=== PATIENT | female | born 1960 | race Caucasian/White ===

== ENCOUNTER 2016-12-18 22:20 | Emergency (ER) | payer OTHER ==
[~2016-12-18] VITALS: Ht 154.9 cm; Wt 60.0 kg
[~2016-12-18 22:20] MED LIST: ERYT.5%O RIGHT EYE
[2016-12-18 22:32] VITALS: BP 95/55; PULSE 84; RESP 18; TEMP 97.8; O2SAT 91
[2016-12-18 22:33] VITALS: O2SAT 96
--- NOTE | 2016-12-18 23:04 | PD ---
HPI Chief Complaint: Respiratory Symptoms Time Seen by Provider: 22:39 Travel History International Travel<30 days: No Contact w/Intl Traveler<30days: No Traveled to known affect area: No History of Present Illness HPI The patient is a 56 year old female who presents to the [facility] emergency department with a history of left-sided chest wall pain that she reports began after she fell at work on Sunday. The patient did not hit the area. She reports that she landed on her knees and then fell backwards. She reports that when she sat up she began to have a pain underneath the left collarbone. She reports that there has been some swelling to the area. She denies having any ecchymosis or erythema. On review of systems, the patient reports that she has had some shortness of breath with exertion. The patient reports that she does have a history of COPD. She reports that she's had a cough that is nonproductive. She denies having any neck pain, abdominal pain, vomiting, diarrhea, urinary symptoms, or neurologic symptoms. She denies any h/ o CHF, MS, CAD, PE, or DVT. PFS Past Medical History Narrative Medical The patient's past medical history is significant for COPD, right rotator cuff tear with chronic pain. Cancer: No Cardiovascular Problems: No Diminished Hearing: No Endocrine: No Genitourinary: No Immune Disorder: No Musculoskeletal: Yes (RIGHT SHOULDER, ROTATOR CUFF CHRONIC INJURY) Neurologic: No Psychiatric: No Reproductive: No Influenza Vaccination: No ?: Not Past Surgical History Narrative Surgical The patient's past surgical history is significant for , ankle sx left side. Other Surgery: Yes (SURGERY ON THE ANKLE) Social History Alcohol Use: Yes (COUPLE DRINKS two times a week.) Tobacco Use: Yes (1/2 ppd) Substance Use: No Allergies-Medications (Allergen,Severity, Reaction): Coded Allergies: No Known Allergies (Verified , 12/18/16) Reported Meds & Prescriptions Reported Meds & Active Scripts Active Proair Hfa 8.5 GM Inh (Albuterol Sulfate) 90 Mcg/Act Aer 2 Puff INH Q4-6H PRN 108 mcg/actuation Doxycycline Hyclate 100 Mg Cap 100 Mg PO BID Medrol Dosepak (Methylprednisolone) 4 Mg Dspk 4 Mg PO DIRECTED Per Pharmacist direction Review of Systems Except as stated in HPI: all other systems reviewed are Neg General / Constitutional: No: Fever Eyes: No: Visual changes HENT: Positive: Congestion, No: Headaches Cardiovascular: Positive: Chest Pain or Discomfort (left chest wall pain), No: Edema Respiratory: Positive: Cough, Wheezing, No: Shortness of Breath Gastrointestinal: No: Nausea, Vomiting, Diarrhea, Abdominal Pain Genitourinary: No: Dysuria Musculoskeletal: Positive: Myalgias, Arthralgias, No: Pain Skin: No Rash Neurologic: No: Weakness, Focal Abnormalities, Change in Mentation, Slurred Speech, Sensory Disturbance Psychiatric: No: Depression Endocrine: No: Polydipsia Hematologic/Lymphatic: No: Easy Bruising Physical Exam Narrative General: The patient is a well-developed, thin appearing female, slightly short of breath on arrival with accessory muscle use noted, O2 saturations on room air are 91%. Head and Neck exam: Head is normocephalic atraumatic. Eyes: EOMI, pupils are equal round and reactive to light. Nose: Midline septum with pink mucous membranes Mouth: Dentition unremarkable. Moist mucus membranes. Posterior oropharynx is not erythematous. No tonsillar hypertrophy. Uvula midline. Airway patent. Neck: No palpable lymphadenopathy. No nuchal rigidity. No thyromegaly. Cardiovascular: Regular rate and rhythm without murmurs, gallops, or rubs. No pulse deficit to the extremities simultaneously auscultation and palpation of her radial artery. Lungs: Expiratory wheezes audible throughout bilateral lung blackwood, no rhonchi, no crackles. The patient has some accessory muscle use noted. No tripoding, no paroxysmal abdominal breathing. The patient has tenderness on palpation along the left upper anterior chest wall. There is some swelling noted. There is no erythema or ecchymosis. No step-off or crepitus. No flail segment. Abdomen: Soft, without tenderness to palpation in all 4 quadrants of the abdomen. No guarding, rebound, or rigidity. Normal bowel sounds are audible. No tenderness on palpation of McBurney's point. Extremities: No clubbing, cyanosis, or edema. 2+ pulses in all 4 extremities. No calf tenderness on palpation. Back: No spinous process tenderness to palpation. No costovertebral angle tenderness to palpation. Neurologic Exam: Grossly nonfocal. Skin Exam: No rash noted. Intact skin that is warm and dry. Data Data Last Documented VS Vital Signs Date Time Temp Pulse Resp B/P (MAP) Pulse Ox O2 Delivery O2 Flow Rate FiO2 12/19/16 03:47 12/19/16 03:26 67 18 98 Room Air 12/19/16 00:20 2.00 12/18/16 22:32 97.8 Orders Orders Complete Blood Count With Diff (12/18/16 23:04) Comprehensive Metabolic Panel (12/18/16 23:04) B-Type Natriuretic Peptide (12/18/16 23:04) D-Dimer (12/18/16 23:04) Act Partial Throm Time (Ptt) (12/18/16 23:04) Prothrombin Time / Inr (Pt) (12/18/16 23:04) Magnesium (Mg) (12/18/16 23:04) Ckmb (Isoenzyme) Profile (12/18/16 23:04) Troponin I (12/18/16 23:) Urinalysis - C+S If Indicated (12/18/16 23:04) Iv Access Insert/Monitor (12/18/16 23:04) Electrocardiogram (12/18/16 23:04) Ecg Monitoring (12/18/16 23:04) Oximetry (12/18/16 23:04) Oxygen Administration (12/18/16 23:) Chest, Single Ap (12/18/16 23:04) Sodium Chloride 0.9% Flush (Ns Flush) (12/18/16 23:15) Methylprednisolone So Succ Inj (Solumedr (12/18/16 23:15) Albuterol-Ipratropium Neb (Duoneb Neb) (12/18/16 23:15) Sodium Chlorid 0.9% 500 Ml Inj (Ns 500 M (12/18/16 23:15) Ketorolac Inj (Toradol Inj) (12/18/16 23:15) Drug Screen, Random Urine (12/18/16 23:07) Alcohol (Ethanol) (12/18/16 23:20) Ct Pulmonary Angiogram (12/19/16 01:53) Iohexol 350 Inj (Omnipaque 350 Inj) (12/19/16 02:30) Labs Laboratory Tests Test 12/18/16 23:20 12/19/16 00:20 White Blood Count 6.5 TH/MM3 Red Blood Count 4.21 MIL/MM3 Hemoglobin 14.3 GM/DL Hematocrit 40.6 % Mean Corpuscular Volume 96.4 FL Mean Corpuscular Hemoglobin 34.0 PG Mean Corpuscular Hemoglobin Concent 35.3 % Red Cell Distribution Width 12.5 % Platelet Count 207 TH/MM3 Mean Platelet Volume 7.8 FL Neutrophils (%) (Auto) 51.1 % Lymphocytes (%) (Auto) 34.6 % Monocytes (%) (Auto) 10.4 % Eosinophils (%) (Auto) 2.9 % Basophils (%) (Auto) 1.0 % Neutrophils # (Auto) 3.3 TH/MM3 Lymphocytes # (Auto) 2.2 TH/MM3 Monocytes # (Auto) 0.7 TH/MM3 Eosinophils # (Auto) 0.2 TH/MM3 Basophils # (Auto) 0.1 TH/MM3 CBC Comment DIFF FINAL Differential Comment Prothrombin Time 9.8 SEC Prothromb Time International Ratio 0.9 RATIO Activated Partial Thromboplast Time 21.5 SEC D-Dimer Quantitative (PE/DVT) 0.60 MG/L FEU Blood Urea Nitrogen 9 MG/DL Creatinine 0.51 MG/DL Random Glucose 95 MG/DL Total Protein 7.1 GM/DL Albumin 3.6 GM/DL Calcium Level 8.6 MG/DL Magnesium Level 1.9 MG/DL Alkaline Phosphatase 64 U/L Aspartate Amino Transf (AST/SGOT) 34 U/L Alanine Aminotransferase (ALT/SGPT) 42 U/L Total Bilirubin 0.2 MG/DL Sodium Level 141 MEQ/L Potassium Level 3.3 MEQ/L Chloride Level 108 MEQ/L Carbon Dioxide Level 25.1 MEQ/L Anion Gap 8 MEQ/L Estimat Glomerular Filtration Rate 125 ML/MIN Total Creatine Kinase 53 U/L Troponin I LESS THAN 0.02 NG/ML B-Type Natriuretic Peptide 8 PG/ML Ethyl Alcohol Level 193 MG/DL Urine Color LIGHT-YELLOW Urine Turbidity CLEAR Urine pH 5.5 Urine Specific [place] 1.006 Urine Protein NEG mg/dL Urine Glucose (UA) NEG mg/dL Urine Ketones NEG mg/dL Urine Occult Blood TRACE Urine Nitrite NEG Urine Bilirubin NEG Urine Urobilinogen LESS THAN 2.0 MG/DL Urine Leukocyte Esterase NEG Urine RBC 1 /hpf Urine WBC 2 /hpf Urine Mucus FEW /lpf Microscopic Urinalysis Comment CULT NOT INDICATED Urine Opiates Screen POS Urine Barbiturates Screen NEG Urine Amphetamines Screen POS Urine Benzodiazepines Screen NEG Urine Cocaine Screen NEG Urine Cannabinoids Screen NEG MDM Medical Decision Making Medical Screen Exam Complete: Yes Emergency Medical Condition: Yes Medical Record Reviewed: Yes Interpretation(s) Last Impressions CT Angiography 12/19/16 0153 Signed Impressions: Service Date/Time: Monday, December 19, 2016 02:29 - CONCLUSION: 1. Negative for pulmonary embolus. 2. Mild to moderate centrilobular emphysema. 3. Linear atelectasis or scarring at the lung bases. Chepe Gómez MD Chest X-Ray 12/18/16 8910 Signed Impressions: Service Date/Time: Sunday, December 18, 2016 23:41 - CONCLUSION: No acute disease. Chepe Gómez MD Differential Diagnosis COPD exacerbation, versus pneumonia, versus pulmonary embolism, versus new- onset congestive heart failure, versus acute coronary syndrome, Versus rib fracture, versus costochondritis Narrative Course During the course of the patients emergency department visit, the patients history, examination, and differential diagnosis were reviewed with the patient. The patient had IV access obtained and blood work sent for analysis. The patient was placed on a solar thermal installer with oximetry and blood pressure monitoring. The patient was initially provided normal saline 500 mL bolus, DuoNeb, slight Medrol 125 mg IV, Toradol 15 mg IV for pain. The patients laboratory studies were reviewed and remarkable for a CBC that is remarkable for a monocytosis at 10.4. , CMP is remarkable for potassium of 3.3 which will be supplemented orally, CPK 53, troponin I less than 0.02, BNP is 8, d-dimer elevated at 0.60, CTA to rule out PE was ordered. PT PTT unremarkable, urinalysis shows trace occult blood, otherwise unremarkable. Urine drug screen is positive for opiates, positive for amphetamines, alcohol level CXCIII Radiology studies were reviewed and remarkable for a chest x-ray that showed no acute cardiopulmonary disease. CTA shows no evidence of pulmonary embolism, mild to moderate edema, linear atelectasis or scarring at the lung bases. The patient on reexamination at 3:15 AM is feeling improved. Resting comfortably. The patient's nasal cannula O2 was discontinued and she continues to saturate 97-98% on room air. A repeat blood pressure is 109/71. The patient will be discharged home with a prescription for doxycycline for bronchitis, a Medrol Dosepak taper, and a pro-air rescue inhaler. She is instructed regarding the importance of decreasing her alcohol intake and quitting smoking. The patient is resting comfortably and feels better, is alert and in no distress. The patients results and examination findings were discussed with the patient. The repeat examination is unremarkable and benign. The history, exam, diagnostic testing, and current condition do not suggest any significant pathology to warrant further testing, continued ED treatment, admission, or surgical evaluation at this point. The vital signs have been stable. The patient does not have uncontrollable pain, intractable vomiting, or other significant symptoms. The patient's condition is stable and appropriate for discharge. The patient will pursue further outpatient evaluation with a primary care physician or other designated or consulting physician as indicated in the discharge instructions. The patient expressed understanding and was agreeable with this plan. Diagnosis Primary Impression: COPD exacerbation Additional Impressions: Fall Qualified Codes: W19.XXXA - Unspecified fall, initial encounter Left-sided chest wall pain Referrals: [facility] 2 days Primary Care Physician 2 days Patient Instructions: COPD (Chronic Obstructive Pulmonary Disease) (ED), Chest Wall Pain (ED), General Instructions Med/Other Pt SpecificInfo: Prescription(s) given Scripts Albuterol 8.5 GM Inh (Proair Hfa 8.5 GM Inh) 90 Mcg/Act Aer 2 PUFF INH Q4-6H Y for SHORTNESS OF BREATH, #1 INHALER 0 Refills 108 mcg/actuation Prov: Vane Goldsmith MD 12/19/16 Doxycycline Hyclate (Doxycycline Hyclate) 100 Mg Cap 100 MG PO BID for Infection, #20 CAP 0 Refills Prov: Vane Goldsmith MD 12/19/16 Methylprednisolone Dosepak (Medrol Dosepak) 4 Mg Dspk 4 MG PO DIRECTED, #1 DSPK 0 Refills Per Pharmacist direction Prov: Vane Goldsmith MD 12/19/16 Disposition: 01 DISCHARGE HOME Condition: Stable Vane Goldsmith MD Dec 18, 2016 23:04
[2016-12-18 23:07] VITALS: O2SAT 96
[2016-12-18] MEDS ORDERED: SODIUM CHLORID 0.9% 500 ML INJ 500 ML IV ONE (23:15)
[2016-12-18] MEDS ORDERED: methylPREDNISolone SOD SUCC 125 MG/2 ML VIAL IVP ONE (23:15)
[2016-12-18] MEDS ORDERED: KETOROLAC TROMETHAMINE 30 MG/ML (IVP) VIAL IV PUSH ONE (23:15)
[2016-12-18] MEDS ORDERED: SODIUM CHLORIDE 0.9% FLUSH 10 ML FLUSH IVF PRN (23:15)
[2016-12-18 23:34] LABS: AUTOMATED NEUTROPHIL # 3.3 TH/MM3 (1.8-7.7); BASOPHIL # 0.1 TH/MM3 (0-0.2); EOSINOPHIL # 0.2 TH/MM3 (0-0.4); EOSINOPHIL % 2.9 % (0.0-4.0); HEMATOCRIT 40.6 % (35.0-46.0); HEMO FLAGS DIFF FINAL; LYMPH % 34.6 % (9.0-44.0); LYMPHOCYTE # 2.2 TH/MM3 (1.0-4.8); MEAN CELL VOLUME 96.4 FL (80.0-100.0); MEAN CORPUSCULAR HGB CONC 35.3 % (32.0-36.0); MONO % 10.4 % (0.0-8.0); NEUT % 51.1 % (16.0-70.0); PLATELET COUNT 207 TH/MM3 (150-450); RED BLOOD COUNT 4.21 MIL/MM3 (4.00-5.30); RED CELL DISTRIBUTION WIDTH 12.5 % (11.6-17.2); WHITE BLOOD COUNT 6.5 TH/MM3 (4.0-11.0)
[2016-12-18] MEDS: RESP: ALBUTEROL 2.5 MG/IPRATROPIUM 0.5 MG NEB (SCH) INH (23:40)
[2016-12-18 23:42] LABS: APTT (PATIENT) 21.5 SEC (24.3-30.1); INTERNATIONAL NORMALIZED RATIO 0.9 RATIO; PROTHROMBIN TIME - PATIENT 9.8 SEC (9.8-11.6)
--- NOTE | 2016-12-18 23:44 | RADRPT ---
EXAM DATE/TIME: 12/18/2016 23:41 [facility] COMPARISON: CHEST SINGLE AP, July 22, 2014, 23:51. INDICATIONS : Shortness of breath. MEDICAL HISTORY : None. SURGICAL HISTORY : None. ENCOUNTER: Initial ACUITY: 1 day PAIN SCORE: 0/10 LOCATION: Bilateral chest FINDINGS: A single view of the chest demonstrates the lungs to be symmetrically aerated without evidence of mas s, infiltrate or effusion. The cardiomediastinal contours are unremarkable. Osseous structures are intact. CONCLUSION: No acute disease. Chepe Gómez MD on December 18, 2016 at 23:41 Board Certified Radiologist. This report was verified electronically.
[2016-12-18 23:55] LABS: ALT (GPT) 42 U/L (10-53); ANION GAP 8 MEQ/L (5-15); AST (GOT) 34 U/L (15-37); BICARBONATE 25.1 MEQ/L (21.0-32.0); BLOOD UREA NITROGEN 9 MG/DL (7-18); CHLORIDE 108 MEQ/L (98-107); GLOMERULAR FILTRATION RATE 125 ML/MIN (>89); MAGNESIUM 1.9 MG/DL (1.5-2.5); POTASSIUM 3.3 MEQ/L (3.5-5.1); SODIUM (NA) 141 MEQ/L (136-145)
[2016-12-18 23:59] LABS: ALCOHOL 193 MG/DL (0-5); ALKALINE PHOSPHATASE 64 U/L (45-117); TOTAL BILIRUBIN ADULT 0.2 MG/DL (0.2-1.0)
[2016-12-19 00:04] LABS: CREATINE KINASE 53 U/L (26-192)
[2016-12-19 00:20] VITALS: BP 97/67; PULSE 89; RESP 16; O2SAT 98
[2016-12-19 00:41] LABS: BLOOD, URINE TRACE (NEG); COMMENT (UR) CULT NOT INDICATED; CULTURE IF INDICATED CULT NOT INDICATED; GLUCOSE,URINE NEG (NEG); KETONE, URINE NEG (NEG); MUCUS URINE FEW /lpf (OCC); NITRITE,URINE NEG (NEG); PH, URINE 5.5 (5.0-8.5); URINE COLOR LIGHT-YELLOW (YELLW/STRAW)
[2016-12-19] MEDS ORDERED: IOHEXOL 350 MG/ML 10 ML VIAL (for RAD DIAG) IVCONTRAST ONE (02:30)
--- NOTE | 2016-12-19 02:58 | RADRPT ---
EXAM DATE/TIME: 12/19/2016 02:29 [facility] COMPARISON: No previous studies available for comparison. INDICATIONS : Shortness of breath and chest pain. Fall few days ago. IV CONTRAST: 75 cc Omnipaque 350 (iohexol) IV RADIATION DOSE: 23.38 CTDIvol (mGy) MEDICAL HISTORY : Chronic obstructive pulmonary disease. SURGICAL HISTORY : None. ENCOUNTER: Initial ACUITY: 1 day PAIN SCALE: 6/10 LOCATION: Bilateral chest TECHNIQUE: Volumetric scanning of the chest was performed using a pulmonary embolism protocol MIP images were re constructed. Using automated exposure control and adjustment of the mA and/or kV according to patien t size, radiation dose was kept as low as reasonably achievable to obtain optimal diagnostic quality images. DICOM format image data is available electronically for review and comparison. Follow-up recommendations for detected pulmonary nodules are based at a minimum on nodule size and pa tient risk factors according to Fleischner Society Guidelines. FINDINGS: No filling defects identified to suggest pulmonary embolic disease. Linear atelectasis or scarring present at the lung bases. Mild to moderate centrilobular emphysema. N o pleural or pericardial effusion. No acute findings in the upper abdomen. Fatty liver. CONCLUSION: 1. Negative for pulmonary embolus. 2. Mild to moderate centrilobular emphysema. 3. Linear atelectasis or scarring at the lung bases. Chepe Gómez MD on December 19, 2016 at 2:52 Board Certified Radiologist. This report was verified electronically.
[2016-12-19] MEDS ORDERED: ALBUAER3 INH (03:23)
[2016-12-19] MEDS ORDERED: DOXY100C PO (03:23)
[2016-12-19] MEDS ORDERED: MEDR4PAK PO (03:23)
[2016-12-19 03:26] VITALS: BP 109/71; PULSE 67; RESP 18; O2SAT 98
--- NOTE | 2016-12-19 14:00 | EKG ---
Date Performed: 12/18/2016 Time Performed: 22:52:01 PTAGE: 56 years EKG: Sinus rhythm LEFT ANTERIOR FASCICULAR BLOCK ABNORMAL ECG Compared to prior tracing no significant change PREVIOUS TRACING : 07/09/2014 09.26 DOCTOR: Laura Borja Interpretating Date/Time 12/19/2016 13:55:43
== END 2016-12-19 03:48 | disposition home or self-care (01) ==
LOC: NEPE 22:20
DX: J44.1 Chronic obstructive pulmonary disease with (acute) exacerbation (principal); R07.89 Other chest pain; I44.4 Left anterior fascicular block; R94.31 Abnormal electrocardiogram [ECG] [EKG]; F17.200 Nicotine dependence, unspecified, uncomplicated; Z79.899 Other long term (current) drug therapy
CPT/HCPCS: 71010; 71275; 80053; 80307; 81001; 82550; 83735; 83880; 84484; 85025; 85379; 85610; 85730; 93005; 94640; 94664; 96361; 96374; 99285; J1885; J2930; J7040; Q9967

== ENCOUNTER 2017-07-23 15:24 | Emergency (ER) | payer OTHER ==
[~2017-07-23 15:24] MED LIST changes: +ALBUAER3 INH; +DOXY100C PO; -ERYT.5%O RIGHT EYE; +MEDR4PAK PO
[2017-07-23] MEDS ORDERED: IOHEXOL 350 MG/ML 10 ML VIAL (for RAD DIAG) IVCONTRAST ONE (15:25)
[2017-07-23 15:39] VITALS: BP 147/75; PULSE 63; RESP 20; TEMP 97.5; O2SAT 97
--- NOTE | 2017-07-23 16:28 | PD ---
HPI Chief Complaint: Medical Clearance Time Seen by Provider: 15:48 Travel History International Travel<30 days: No Contact w/Intl Traveler<30days: No Traveled to known affect area: No History of Present Illness HPI The patient was seen and examined in the presence of the nurse. This patient was injured in an accident 2 hours ago. Severity is moderate. Duration 2 hours. She is ambulatory. She was cleaning underneath a metal cleaning cart of some sort. Somehow it got released from its holding position and it fell on top of her and pinned her to the ground. She says it weighed 200 pounds. Her chief complaint is low back pain. No sciatic radiation. Denies any head or neck pain or injury. She does have some abdominal discomfort in the lower quadrants. No hematuria. No alleviating factors. Pain is worse with movement. PFSH Past Medical History Cancer: No Cardiovascular Problems: No COPD: Yes Diminished Hearing: No Endocrine: No Genitourinary: No Immune Disorder: No Musculoskeletal: Yes (RIGHT SHOULDER, ROTATOR CUFF CHRONIC INJURY) Neurologic: No Psychiatric: No Reproductive: No Tetanus Vaccination: < 5 Years Influenza Vaccination: Yes ?: Not Past Surgical History Section: Yes Other Surgery: Yes (SURGERY ON THE ANKLE) Social History Alcohol Use: Yes (COUPLE DRINKS two times a week.) Tobacco Use: Yes (1/2 ppd) Substance Use: No Allergies-Medications (Allergen,Severity, Reaction): Coded Allergies: No Known Allergies (Verified Allergy, Unknown, 07/23/17) Reported Meds & Prescriptions Reported Meds & Active Scripts Active Proair Hfa 8.5 GM Inh (Albuterol Sulfate) 90 Mcg/Act Aer 2 Puff INH Q4-6H PRN 108 mcg/actuation Doxycycline Hyclate 100 Mg Cap 100 Mg PO BID Medrol Dosepak (Methylprednisolone) 4 Mg Dspk 4 Mg PO DIRECTED Per Pharmacist direction Review of Systems General / Constitutional: No: Fever Eyes: No: Visual changes HENT: No: Headaches Cardiovascular: No: Chest Pain or Discomfort Respiratory: No: Shortness of Breath Gastrointestinal: No: Abdominal Pain Genitourinary: No: Dysuria Musculoskeletal: Positive: Pain Skin: No Rash Neurologic: No: Weakness Psychiatric: No: Depression Endocrine: No: Polydipsia Hematologic/Lymphatic: No: Easy Bruising Physical Exam Narrative GENERAL: Well-nourished, well-developed patient in no apparent distress. SKIN: Focused skin assessment reveals no rash and nodules. Skin is Warm and dry. HEAD: Atraumatic. Normocephalic. EYES: Pupils equal and round. No scleral icterus. No injection or drainage. ENT: No nasal bleeding or discharge. Mucous membranes pink and moist. Abrasion to the nasal bridge without tenderness NECK: Trachea midline. No JVD. No midline tenderness CARDIOVASCULAR: Regular rate and rhythm. No murmur appreciated. RESPIRATORY: No accessory muscle use. Clear to auscultation. Breath sounds equal bilaterally. GASTROINTESTINAL: Abdomen soft, non-tender, nondistended. Hepatic and splenic margins not palpable. MUSCULOSKELETAL: No obvious deformities. No clubbing. No cyanosis. No edema. There is some tenderness in the lumbar midline. There is an abrasion to the left of midline near the junction between lumbar and thoracic spine. NEUROLOGICAL: Awake and alert. No obvious cranial nerve deficits. Motor grossly within normal limits. Normal speech. PSYCHIATRIC: Appropriate mood and affect; insight and judgment normal. Data Data Last Documented VS Vital Signs Date Time Temp Pulse Resp B/P (MAP) Pulse Ox O2 Delivery O2 Flow Rate FiO2 07/23/17 16:44 18 07/23/17 15:39 97.5 63 147/75 (99) 97 Orders Orders Iv Access Insert/Monitor (07/23/17 16:19) Complete Blood Count With Diff (07/23/17 16:19) Basic Metabolic Panel (Bmp) (07/23/17 16:19) Chest, Single Ap (07/23/17 ) Pelvis, Ap Only (Routine) (07/23/17 ) Ct Abd/Pel W Iv Contrast(Rout) (07/23/17 ) Ondansetron Inj (Zofran Inj) (07/23/17 16:30) Morphine Inj (Morphine Inj) (07/23/17 16:30) Ct Lumb Spine W Iv Contrast (07/23/17 ) Iohexol 350 Inj (Omnipaque 350 Inj) (07/23/17 15:25) ^ Lumbar Sacral Corset (07/23/17 18:53) Morphine Inj (Morphine Inj) (07/23/17 19:00) Ondansetron Inj (Zofran Inj) (07/23/17 19:00) Labs Laboratory Tests Test 07/23/17 16:40 White Blood Count 9.0 TH/MM3 Red Blood Count 4.13 MIL/MM3 Hemoglobin 13.5 GM/DL Hematocrit 39.7 % Mean Corpuscular Volume 96.1 FL Mean Corpuscular Hemoglobin 32.6 PG Mean Corpuscular Hemoglobin Concent 33.9 % Red Cell Distribution Width 12.5 % Platelet Count 252 TH/MM3 Mean Platelet Volume 8.1 FL Neutrophils (%) (Auto) 66.6 % Lymphocytes (%) (Auto) 22.9 % Monocytes (%) (Auto) 7.9 % Eosinophils (%) (Auto) 1.9 % Basophils (%) (Auto) 0.7 % Neutrophils # (Auto) 6.0 TH/MM3 Lymphocytes # (Auto) 2.1 TH/MM3 Monocytes # (Auto) 0.7 TH/MM3 Eosinophils # (Auto) 0.2 TH/MM3 Basophils # (Auto) 0.1 TH/MM3 CBC Comment DIFF FINAL Differential Comment Blood Urea Nitrogen 19 MG/DL Creatinine 0.46 MG/DL Random Glucose 87 MG/DL Calcium Level 9.0 MG/DL Sodium Level 141 MEQ/L Potassium Level 3.9 MEQ/L Chloride Level 107 MEQ/L Carbon Dioxide Level 27.2 MEQ/L Anion Gap 7 MEQ/L Estimat Glomerular Filtration Rate 140 ML/MIN MDM Medical Decision Making Medical Screen Exam Complete: Yes Emergency Medical Condition: Yes Medical Record Reviewed: Yes Differential Diagnosis Lumbar fracture, renal laceration, contusion Narrative Course I have reviewed the patient's electronic medical record. I have ordered a workup to evaluate for traumatic or internal injury IV placed and labs sent I reviewed her chest x-ray which is normal I reviewed her pelvis x-ray which is normal CT of the lumbar spine shows an acute mild endplate fracture of L2 with no retropulsion CT of abdomen and pelvis which is normal Patient is neurologically intact. No radiculopathy. She is ambulatory. She does have pain and I am going to give her 1 more injection of morphine She I believe will need more than 3 days of pain medicines were written her 25 Percocet. She will follow-up with his Worker's Comp. and discuss orthopedic referral I reviewed it with the orthopedist umang DICKERSON who reviewed the films and recommends lumbar corset be applied which I have ordered Diagnosis Primary Impression: L2 vertebral fracture Qualified Codes: S32.029A - Unspecified fracture of second lumbar vertebra, initial encounter for closed fracture Additional Instructions: Follow-up with orthopedist The patient was warned about potential sedation for the medications they will receive on prescription. Wear lumbar corset Med/Other Pt SpecificInfo: Prescription(s) given Scripts Oxycodone-Acetaminophen (Percocet) 5-325 mg Tab 1 TAB PO Q6H Y for PAIN, #25 TAB 0 Refills Prov: Jagdeep Wiley MD 07/23/17 Disposition: 01 DISCHARGE HOME Condition: Stable Jagdeep Wiley MD Jul 23, 2017 16:28
[2017-07-23] MEDS ORDERED: ONDANSETRON HCL 4 MG/2 ML VIAL IV ONE ×2 (16:30→19:00)
[2017-07-23] MEDS ORDERED: MORPHINE SULFATE 4 MG/ML INJ IV PUSH ONE ×2 (16:30→19:00)
--- NOTE | 2017-07-23 17:27 | RADRPT ---
EXAM DATE/TIME: 07/23/2017 17:10 [facility] COMPARISON: No previous studies available for comparison. INDICATIONS : Trauma, patient pinned under steel cage at work. Patient complains of back and head pain. IV CONTRAST: 96 cc Omnipaque 350 (iohexol) IV ORAL CONTRAST: No oral contrast ingested. RADIATION DOSE: 4.66 CTDIvol (mGy) MEDICAL HISTORY : Chronic obstructive pulmonary disease. SURGICAL HISTORY : None. ENCOUNTER: Initial ACUITY: 1 day PAIN SCALE: 10/10 LOCATION: abdomen TECHNIQUE: Volumetric scanning of the abdomen and pelvis was performed. Using automated exposure control and ad justment of the mA and/or kV according to patient size, radiation dose was kept as low as reasonably achievable to obtain optimal diagnostic quality images. DICOM format image data is available electro nically for review and comparison. FINDINGS: The lower lungs are clear. The liver and gallbladder are unremarkable The spleen, pancreas adrenals and kidneys are unremarkable There is no free fluid or free air. There is no abdominal wall hematoma identified. In the pelvis bladder and adnexal regions are unremarkable Review of bone windows reveals no evidence for fracture. CONCLUSION: Negative for acute hepatic injury Baldemar Gutierrez MD FACR on July 23, 2017 at 17:24 Board Certified Radiologist. This report was verified electronically.
[2017-07-23 17:37] LABS: BICARBONATE 27.2 MEQ/L (21.0-32.0); CREATININE 0.46 MG/DL (0.50-1.00)
[2017-07-23 17:50] LABS: BASOPHIL # 0.1 TH/MM3 (0-0.2); BASOPHIL % 0.7 % (0.0-2.0); EOSINOPHIL # 0.2 TH/MM3 (0-0.4); EOSINOPHIL % 1.9 % (0.0-4.0); HEMATOCRIT 39.7 % (35.0-46.0); HEMOGLOBIN 13.5 GM/DL (11.6-15.3); LYMPH % 22.9 % (9.0-44.0); LYMPHOCYTE # 2.1 TH/MM3 (1.0-4.8); MEAN CELL VOLUME 96.1 FL (80.0-100.0); MEAN CORPUSCULAR HEMOGLOBIN 32.6 PG (27.0-34.0); MEAN CORPUSCULAR HGB CONC 33.9 % (32.0-36.0); MEAN PLATELET VOLUME 8.1 FL (7.0-11.0); MONO % 7.9 % (0.0-8.0); MONOCYTE # 0.7 TH/MM3 (0-0.9); NEUT % 66.6 % (16.0-70.0); PLATELET COUNT 252 TH/MM3 (150-450); RED BLOOD COUNT 4.13 MIL/MM3 (4.00-5.30); RED CELL DISTRIBUTION WIDTH 12.5 % (11.6-17.2)
--- NOTE | 2017-07-23 18:07 | RADRPT ---
EXAM DATE/TIME: 07/23/2017 17:38 [facility] COMPARISON: PELVIS AP ONLY, July 22, 2014, 23:53. INDICATIONS : Bilateral hip and lower back pain. Patient was pinned between a steel cage and the floor today. MEDICAL HISTORY : Chronic obstructive pulmonary disease. SURGICAL HISTORY : None. ENCOUNTER: Initial ACUITY: 1 day PAIN SCORE: 10/10 LOCATION: Pelvis. FINDINGS: A single frontal view of the pelvis demonstrates no evidence of fracture. The bony pelvic ring is in tact. Bony mineralization is normal. The soft tissues are intact. Contrast in the urinary bladder f rom the patient's CT scan earlier today. Partial sacralization of the left side of L5 CONCLUSION: 1. Partial sacralization of the left side of L5. 2. No fracture. Tonio Whitehead MD on July 23, 2017 at 18:04 Board Certified Radiologist. This report was verified electronically.
--- NOTE | 2017-07-23 18:08 | RADRPT ---
EXAM DATE/TIME: 07/23/2017 17:40 [facility] COMPARISON: CHEST SINGLE AP, December 18, 2016, 23:41. INDICATIONS : Chest pain. Patient was pinned between a steel cage and the floor. MEDICAL HISTORY : Chronic obstructive pulmonary disease. SURGICAL HISTORY : None. ENCOUNTER: Initial ACUITY: 1 day PAIN SCORE: 10/10 LOCATION: Bilateral chest FINDINGS: A single view of the chest demonstrates the lungs to be symmetrically aerated without evidence of mas s, infiltrate or effusion. The cardiomediastinal contours are unremarkable. Osseous structures are intact with old healed fracture deformities of the posterolateral left mid ribs. CONCLUSION: Old left-sided rib fractures. Lungs are clear. Tonio Whitehead MD on July 23, 2017 at 18:06 Board Certified Radiologist. This report was verified electronically.
--- NOTE | 2017-07-23 18:21 | RADRPT ---
EXAM DATE/TIME: 07/23/2017 17:10 [facility] COMPARISON: No previous studies available for comparison. INDICATIONS : Patient pinned under steel cage at work. Patient complains of back and head pain. IV CONTRAST: 96 cc Omnipaque 350 (iohexol) IV RADIATION DOSE: CTDIvol (mGy) ; Reconstructed from previous dataset, no dose MEDICAL HISTORY : Chronic obstructive pulmonary disease. SURGICAL HISTORY : None. ENCOUNTER: Initial ACUITY: 1 day PAIN SCALE: 10/10 LOCATION: low back TECHNIQUE: Volumetric scanning of the lumbar spine was performed. Multiplanar reconstructions in the sagittal, coronal and oblique axial planes were performed. Using automated exposure control and adjustment of the mA and/or kV according to patient size, radiation dose was kept as low as reasonably achievable t o obtain optimal diagnostic quality images. DICOM format image data is available electronically for review and comparison. FINDINGS: Sagittal and coronal reconstructions show no acute fracture through the superior endplate of L2. No r etropulsed fragment. Vertebral body heights are otherwise maintained. Minimal grade 1 anterolisthesis of L3 on 4 appears to be due to facet degeneration and hypertrophy, most prominent rightward. L1-L2: The disc, uncovertebral joints, central canal, foramina, and facets are normal. L2-L3: The disc, uncovertebral joints, central canal, foramina, and facets are normal. L3-L4: Facet hypertrophy, right greater than left. Spinal canal and neural foramina are adequate L4- L5-S1: The disc, uncovertebral joints, central canal, foramina, and facets are normal. CONCLUSION: 1. Acute, mild fracture through the superior endplate of L2. No retropulsed fragment. 2. Facet hypertrophy bilaterally at L3-4, right worse than left. Mild grade 1 anterolisthesis of L3 o n 4. 3. Degenerative disc disease most prominent at L4-5 with vacuum disc phenomenon and a mild, diffuse d isc bulge. Tonio Whitehead MD on July 23, 2017 at 18:16 Board Certified Radiologist. This report was verified electronically.
[2017-07-23] MEDS ORDERED: PERC5TAB12 PO (18:54)
[2017-07-23 19:09] VITALS: BP 131/70; PULSE 61; RESP 16; TEMP 98.7; O2SAT 98
== END 2017-07-23 21:59 | disposition home or self-care (01) ==
LOC: NEPC 15:24
DX: S32.029A Unspecified fracture of second lumbar vertebra, initial encounter for closed fracture (principal); Q76.49 Other congenital malformations of spine, not associated with scoliosis; M51.36 Other intervertebral disc degeneration, lumbar region; W20.8XXA Other cause of strike by thrown, projected or falling object, initial encounter; Y99.0 Civilian activity done for income or pay; J44.9 Chronic obstructive pulmonary disease, unspecified; F17.210 Nicotine dependence, cigarettes, uncomplicated; Z79.899 Other long term (current) drug therapy
CPT/HCPCS: 71045; 72132; 72170; 74177; 80048; 85025; 96374; 96375; 96376; 99285; J2270; J2405; L0627; Q9967